=== PATIENT | male | born 1975 | race Caucasian/White ===

== ENCOUNTER 2019-12-05 11:24 | Outpatient (RCR) | payer OTHER | END 2020-02-27 | disposition home or self-care (01) | PROVIDERS: ATTEND Nurse Practitioner Family | DX: M54.16 Radiculopathy, lumbar region (principal) ==

== ENCOUNTER 2020-04-13 05:39 | Outpatient (RCR) | payer OTHER ==
[~2020-04-13] VITALS: Ht 182 cm; Wt 104.0 kg
[~2020-04-13 05:39] MED LIST: ESOM20TA PO
== END 2020-04-13 09:49 | disposition home or self-care (01) ==
LOC: PREOP 05:39
PROVIDERS: ATTEND Surgery
DX: Z01.812 Encounter for preprocedural laboratory examination (principal); Z20.828 Contact with and (suspected) exposure to other viral communicable diseases
CPT/HCPCS: 87635

== ENCOUNTER 2020-04-17 09:44 | Day surgery (SDC) | payer OTHER ==
[~2020-04-17] VITALS: Ht 182 cm; Wt 104.0 kg
[2020-04-17] VITALS (9 sets, daily range): BP systolic 115–127; BP diastolic 40–81
[2020-04-17] MEDS ORDERED: LACTATED RINGERS 1,000 ML IV ONE (09:48)
[2020-04-17] MEDS ORDERED: LACTATED RINGERS 1,000 ML IV STA (09:52)
[2020-04-17] MEDS ORDERED: HURRICAINE EXT TUBE (BENZOCAINE) XX PRN (10:00)
--- NOTE | 2020-04-17 10:09 | Progress Note-Pre Operative ---
Pre-Operative Progress Note H&P Reviewed The H&P was reviewed, patient examined and no changes noted. Date Seen by Provider: Apr 17, 2020 Time Seen by Provider: 10: Date H&P Reviewed: Apr 17, 2020 Time H&P Reviewed: 10: Pre-Operative Diagnosis: epigstric abd pain, dysphagia, gerd ANDREW FRANCIS DO Apr 17, 2020 10:09
[2020-04-17] MEDS ORDERED: MIDAZOLAM 2 MG/2 ML (VERSED) VIAL ONE (11:22)
[2020-04-17] MEDS ORDERED: PROPOFOL INJECTION 50 ML IV ONE (11:22)
--- NOTE | 2020-04-17 11:46 | Discharge Inst-Simple/Standard ---
Discharge Inst-Standard Patient Instructions/Follow Up Plan of Care/Instructions/FU: 2-3 weeks Forest Activity as Tolerated: Yes Discharge Diet: Regular Diet ANDREW FRANCIS DO Apr 17, 2020 11:46
--- NOTE | 2020-04-17 11:47 | Progress Note-Post Operative ---
Post-Operative Progess Note Surgeon (s)/Vehicle Monitor Technician (s) Surgeon ANDREW FRANCIS DO Vehicle Monitor Technician: na Pre-Operative Diagnosis epigstric abd pain, dysphagia, gerd Post-Operative Diagnosis normal egd Procedure & Operative Findings Date of Procedure 04/17/20 Procedure Performed/Findings egd c biopsies Anesthesia Type per storage battery charger Estimated Blood Loss Estimated blood loss (mL): none Specimens/Packing Specimens Removed antrum, ge ANDREW FRANCIS DO Apr 17, 2020 11:47
--- NOTE | 2020-04-17 12:43 | Anesthesia-General Post-Op ---
MAC Patient Condition Mental Status/LOC: Same as Preop Cardiovascular: Satisfactory Nausea/Vomiting: Absent Respiratory: Satisfactory Pain: Controlled Complications: Absent Post Op Complications Complications None Follow Up Care/Instructions Patient Instructions None needed. Anesthesiology Discharge Order Discharge Order Patient is doing well, no complaints, stable vital signs, no apparent adverse anesthesia problems. No complications reported per nursing. NOE CARCAMO CRNA Apr 17, 2020 12:43
--- NOTE | 2020-04-17 18:16 | OPERATIVE REPORT ---
DATE OF SERVICE: 04/17/2020 PREOPERATIVE DIAGNOSES: Epigastric abdominal pain, dysphagia and gastroesophageal reflux disease. POSTOPERATIVE DIAGNOSIS: Normal EGD. PROCEDURE: EGD with biopsies. SURGEON: Andrew Garg DO ANESTHESIA: Per JOINT RUNNER. ESTIMATED BLOOD LOSS: None. COMPLICATIONS: None. INDICATIONS: The patient is a 45-year-old male with symptoms of epigastric abdominal pain, dysphagia and GERD. He understands risks and benefits of procedure and wished to proceed with procedure. Consent was signed in the chart. DESCRIPTION OF PROCEDURE: The patient was taken to the endoscopy suite, placed in left lateral recumbent position. Timeout was performed. Scope was inserted in mouth, down the esophagus, stomach and into the duodenum without difficulty. There were no polyps, masses or ulcerations within the duodenum. Scope was slowly retracted back into the stomach where it was further insufflated. No masses or ulcerations. There were some gastric polyps throughout the stomach, all benign appearing. Scope was retroflexed noting no other pathology. Scope was returned to its normal position, withdrawn to distal esophagus. No polyps, masses or ulcerations. No erythematous changes. Biopsy of GE junction was obtained. Scope was then slowly retracted back until completely removed. The patient tolerated procedure well without any complications and taken to recovery room in stable condition. RECOMMENDATIONS: Continue on current medications. We will review pathology of the antrum and GE junction at followup visit. Further recommendations pending biopsy results. Job ID: [id number] DocumentID: [id number] Dictated Date: 04/17/2020 11:49:59 Extension Service Advisor Date: 04/17/2020 18:16:36 Dictated By: ANDREW GARG DO
== END 2020-04-17 12:45 | disposition home or self-care (01) ==
LOC: ENDO 09:44
PROVIDERS: ATTEND Surgery
DX: K21.9 Gastro-esophageal reflux disease without esophagitis (principal); E66.9 Obesity, unspecified; Z68.31 Body mass index [BMI] 31.0-31.9, adult; Z79.899 Other long term (current) drug therapy
CPT/HCPCS: 88305